=== PATIENT | female | born 1940 | race Caucasian/White ===

== ENCOUNTER 2020-11-07 08:15 | Day surgery (SDC) | payer MEDICARE, OTHER ==
[~2020-11-07 08:15] MED LIST: Lactated Ringers 1,000 ML IV SCH; Lidocaine 1%/Sod Bicarbonate in NS 8.4% 1 ML Syringe IDERM PRN; Morphine 8 MG, EPINEPHrine 0.3 MG, Cefuroxime 750 MG, Ketorolac 30 MG, Sodium Chloride ... PRN; Sodium Chloride 0.9% 10 ML Syringe FLUSH PRN
[2020-11-07] MEDS ORDERED: Propofol 200 MG/20 ML SDV ONE ×3 (08:19→10:26)
[2020-11-07] MEDS ORDERED: Ondansetron 4 MG/2 ML SDV ONE (08:19)
[2020-11-07] MEDS ORDERED: fentaNYL 100 MCG/2 ML SDV ONE ×2 (08:19→10:51)
[2020-11-07] MEDS ORDERED: ceFAZolin 1 GM Vial ONE (08:20)
[2020-11-07] MEDS ORDERED: Lidocaine 1% 4 ML ONE (08:20)
--- NOTE | 2020-11-07 08:46 | PCM.PREANE ---
Preanesthetic Assessment - Procedure Proposed Procedure: Right total Knee - Anesthesia/Transfusion/Family Hx Anesthesia History: Prior Anesthesia Without Reaction Family History of Anesthesia Reaction: No Transfusion History: No Prior Transfusion(s) - Review of Systems General: No Symptoms Pulmonary: No Symptoms Cardiovascular: Dyspnea on Exertion Gastrointestinal: No Symptoms Neurological: Gait Disturbance (with knee) Other: Reports: None - Physical Assessment NPO Status Date: 11/06/20 NPO Status Time: 00:00 Height: 1.63 m Weight: 73.1 kg ASA Class: 3 Mental Status: Alert & Oriented x3 Airway Class: Mallampati = 2 Dentition: Reports: Normal Dentition, [place](s) Thyro-Mental Finger Breadths: 3 Mouth Opening Finger Breadths: 2 ROM/Head Extension: Full Lungs: Clear to Auscultation, Normal Respiratory Effort Cardiovascular: Regular Rate, Regular Rhythm - Imaging/EKG Impressions: EKG NSR LBBB - Allergies Allergies/Adverse Reactions: Allergies Allergy/AdvReac Type Severity Reaction Status Date / Time Sulfa (Sulfonamide Allergy Nausea and Verified 11/06/20 12:36 Antibiotics) Vomiting - Anesthesia Plan Pre-Op Medication Ordered: Beta Kalpana Beta Kalpana: Other (Bystolic) Med Last Dose Date: 11/07/20 Med Last Dose Time: 07:00 - Acknowledgements Anesthesia Type Planned: Spinal Pt an Appropriate Candidate for the Planned Anesthesia: Yes Alternatives and Risks of Anesthesia Discussed w Pt/Guardian: Yes Pt/Guardian Understands and Agrees with Anesthesia Plan: Yes PreAnesthesia Questionnaire HEENT History: Reports: Cataract Cardiovascular History: Reports: High Cholesterol, Other (See Below) Other Cardiovascular History: BBB Gastrointestinal History: Reports: GERD Genitourinary History: Reports: Renal Disease Musculoskeletal History: Reports: Osteoarthritis Other Hematologic History: coagulation defect, hyponatremia Oncologic (Cancer) History: Reports: Malignant Melanoma - Past Surgical History HEENT Surgical History: Reports: Cataract Surgery GI Surgical History: Reports: Colonoscopy, EGD Female Surgical History: Reports: Breast Biopsy, Cervical Conization Musculoskeletal Surgical History: Reports: Joint Replacement - SUBSTANCE USE Tobacco Use Status *Q: Former Tobacco User Tobacco Use Within Last Twelve Months: No Second Hand Smoke Exposure: No Days Per Week of Alcohol Use: 1 Number of Drinks Per Day: 0 Total Drinks Per Week: 0 Recreational Drug Use History: No - HOME MEDS Home Medications: Home Meds Acetaminophen [Tylenol Extra Strength] 1 tab PO ASDIRECTED PRN 11/06/20 [History] Aspirin [Aspirin EC] 325 mg PO BID #30 tab 11/06/20 [Rx] Aspirin [Halfprin] 81 mg PO DAILY 11/06/20 [History] Chlorthalidone 1 tab PO DAILY 11/06/20 [History] Cholecalciferol (Vitamin D3) [Vitamin D3] 1 cap PO DAILY 11/06/20 [History] Cyanocobalamin (Vitamin B12) [Vitamin B12] 1 tab PO DAILY 11/06/20 [History] Docusate Sodium 1 tab PO DAILY 11/06/20 [History] Fish Oil/[place]-3 Fatty Acids [Fish Oil 1,000 MG] 2 cap PO DAILY 11/06/20 [History] Magnesium Oxide 400 mg PO DAILY 11/06/20 [History] NIFEdipine [Procardia XL] 30 mg PO ASDIRECTED 11/06/20 [History] Nebivolol HCl [Bystolic] 5 mg PO DAILY 11/06/20 [History] Omeprazole Magnesium [Prilosec Otc] 20 mg PO DAILY 11/06/20 [History] Rivaroxaban [Xarelto] 10 mg PO DAILY #14 tab 11/06/20 [Rx] Sennosides [Senna] 2 tab PO DAILY 11/06/20 [History] Simvastatin [Zocor] 10 mg PO DAILY 11/06/20 [History] diphenhydrAMINE HCL [Unisom] 50 mg PO ASDIRECTED PRN 11/06/20 [History] oxyCODONE 5 - 10 mg PO Q4H PRN #40 tab 11/06/20 [Rx] - CURRENT (IN HOUSE) MEDS Current Meds: Current Medications Morphine Sulfate 8 mg/Epinephrine HCl 0.3 mg/Cefuroxime Sodium 750 mg/Ketorolac Tromethamine 30 mg/Sodium Chloride 7.9 ml 0 mg .XX ASDIRECTED PRN PRN Reason: Pain Stop: 11/07/20 16:00 Lactated Ringer's (Ringers, Lactated) 1,000 mls @ 125 mls/hr IV ASDIRECTED OCTAVIANO Stop: 11/07/20 23:00 Lidocaine/Sodium Bicarbonate (Lidocaine 1%/Sod Bicarbonate In Ns 8.4% 1 Ml Syringe) 0.25 ml IDERM ONETIME PRN PRN Reason: Prior to IV Start Stop: 11/07/20 18:00 Sodium Chloride (Sodium Chloride 0.9% 10 Ml Syringe) 10 ml FLUSH ASDIRECTED PRN PRN Reason: Keep Vein Open Stop: 11/07/20 18:00 Discontinued Medications Cefazolin Sodium (Cefazolin 1 Gm Vial) Confirm Administered Dose 2 gm .ROUTE .STK-MED ONE Stop: 11/07/20 08:21 Morphine Sulfate 8 mg/Epinephrine HCl 0.3 mg/Cefuroxime Sodium 750 mg/Ketorolac Tromethamine 30 mg/Sodium Chloride 7.9 ml 0 mg .XX ASDIRECTED PRN PRN Reason: Pain Fentanyl (Fentanyl 100 Mcg/2 Ml Sdv) Confirm Administered Dose 100 mcg .ROUTE .STK-MED ONE Stop: 11/07/20 08:20 Lidocaine HCl (Xylocaine-Mpf 1%) Confirm Administered Dose 4 mls @ as directed .ROUTE .STK-MED ONE Stop: 11/07/20 08:21 Ondansetron HCl (Ondansetron 4 Mg/2 Ml Sdv) Confirm Administered Dose 4 mg .ROUTE .STK-MED ONE Stop: 11/07/20 08:20 Propofol (Propofol 200 Mg/20 Ml Sdv) Confirm Administered Dose 200 mg .ROUTE .STK-MED ONE Stop: 11/07/20 08:20 Tranexamic Acid (Tranexamic Acid 1,000 Mg/10 Ml Amp) Confirm Administered Dose 1,000 mg .ROUTE .STK-MED ONE Stop: 11/07/20 08:21 Vancomycin HCl (Vancomycin 1 Gm Sdv) Confirm Administered Dose 1 gm .ROUTE .STK- MED ONE Stop: 11/07/20 08:21
[2020-11-07] MEDS ORDERED: Lactated Ringers 1,000 ML ONE (10:19)
[2020-11-07] MEDS: Vancomycin 1 GM SDV ONE ×2 (10:24→10:44)
[2020-11-07] MEDS: Morphine 8 MG, EPINEPHrine 0.3 MG, Cefuroxime 750 MG, Ketorolac 30 MG, Sodium Chloride ... PRN ×10 (10:28→10:36)
[2020-11-07] MEDS ORDERED: Labetalol 100 MG/20 ML MDV ONE (10:37)
[2020-11-07] MEDS ORDERED: fentaNYL 100 MCG/2 ML SDV IVPUSH PRN (11:13)
--- NOTE | 2020-11-07 11:14 | PCM.POSTAN ---
POST ANESTHESIA ASSESSMENT - MENTAL STATUS Mental Status: Alert, Oriented - RESPIRATORY Respiratory Status: Respiratory Rate WNL, Airway Patent, O2 Saturation Stable - CARDIOVASCULAR CV Status: Pulse Rate WNL, Blood Pressure Stable - GASTROINTESTINAL GI Status: No Symptoms - PAIN Pain Score: 0 - POST OP HYDRATION Hydration Status: Adequate & Stable - OBSERVATIONS Free Text/Narrative:: no anesthesia complications noted
[2020-11-07] MEDS ORDERED: EPINEPHrine 1 MG/ML SDV ONE (11:17)
[2020-11-07] MEDS ORDERED: LORazepam 2 MG/ML SDV ONE (11:18)
[2020-11-07] MEDS ORDERED: Ropivacaine 0.5% 5 MG/ML 30 ML SDV ONE (11:18)
[2020-11-07] MEDS ORDERED: LORazepam 2 MG/ML SDV IVPUSH ONE (11:24)
--- NOTE | 2020-11-07 11:47 | PCM.SN.2 ---
- Free Text/Narrative Note: Right selective femoral nerve block at the adductor canal for post-procedure pain control under US guidance requested by Dr. Chowdary. Time Out: 1127 Start:1127 End: 1137 Chart reviewed. Consent signed. Questions answered. Appropriate monitors applied. Time out performed. Right mid-shaft femur identified with ultrasound, scanning medially of femur, the femoral artery in the adductor canal visualized, and the femoral nerve located laterally to the artery. The skin was prepped lateral to the ultrasound probe with chlorahexadine times two. The 21ga 4 insulated block needle was inserted under direct ultrasound guidance into the adductor canal. 25mL of 0.5% ropivacaine with 1:200,000 epinephrine was injected circumferentially around the nerve with intermittent negative aspiration noted. Patient tolerated the procedure well. Sterile technique noted along with sterile gloves, mask, and sterile probe cover. See picture on progress note and vital signs on nurses notes. Block completed in PACU. Dante Genao CRNA
--- NOTE | 2020-11-07 12:26 | CR ---
Right knee: AP and crosstable lateral views of the right knee were obtained. Comparison: Prior right knee CT exam of 10/26/20. Knee prosthesis is noted. Patellar prosthesis is seen. Soft tissue air is noted. Underlying osseous structures show no acute abnormality. Impression: 1. Satisfactory postop radiographic appearance of recently placed right knee prostheses. Diagnostic code #2
[2020-11-07] MEDS ORDERED: oxyCODONE 5 MG Tab PO PRN (14:00)
--- NOTE | 2020-11-07 16:51 | PCM.SN.2 ---
#1 Interpretation EKG Date: 11/07/20 Time: 11:43 Rhythm: NSR Rate (Beats/Min): 90 [place]: LAD-Left [place] Deviation P-Wave: Present QRS: LBBB ST-T: Normal QT: Normal
[2020-11-07] MEDS ORDERED: Ondansetron 4 MG/2 ML SDV IVPUSH PRN (19:00)
[2020-11-07] MEDS ORDERED: Non-Formulary Medication 1 Each (Acetaminophen 500 MG Tablet) PO PRN (19:02)
[2020-11-07] MEDS ORDERED: NIFEdipine 30 MG Tab.ER PO SCH (19:15)
[2020-11-07] MEDS ORDERED: Acetaminophen 325 MG Tab PO PRN (21:53)
[2020-11-07] MEDS ORDERED: NIFEdipine 30 MG Tab.ER PO ONE (22:00)
[2020-11-08] MEDS ORDERED: Pantoprazole 40 MG Tab.CR PO SCH (06:00)
--- NOTE | 2020-11-08 08:16 | PCM48HPAN ---
Post Anesthesia Note - EVALUATION WITHIN 48HRS OF ANESTHETIC Vital Signs in Normal Range: Yes Patient Participated in Evaluation: Yes Respiratory Function Stable: Yes Airway Patent: Yes Cardiovascular Function Stable: Yes Hydration Status Stable: Yes Pain Control Satisfactory: Yes Nausea and Vomiting Control Satisfactory: Yes Mental Status Recovered: Yes Vital Signs: Last Vital Signs Temp 37.1 C 11/08/20 07:25 Pulse 90 11/08/20 07:25 Resp 14 11/08/20 07:25 BP 129/49 L 11/08/20 07:25 Pulse Ox 97 11/08/20 07:25
[2020-11-08] MEDS ORDERED: Magnesium Oxide 400 MG Tab PO SCH (09:00)
[2020-11-08] MEDS ORDERED: Docusate Sodium 100 MG Cap PO SCH (09:00)
[2020-11-08] MEDS ORDERED: NEBIVOLOL HCL 5 MG PO SCH (09:00)
[2020-11-08] MEDS ORDERED: Sennosides 8.6 MG Tab PO SCH (09:00)
[2020-11-08] MEDS ORDERED: Aspirin 81 MG Tab.EC PO SCH (09:00)
[2020-11-08] MEDS ORDERED: Rivaroxaban 10 MG Tab PO SCH (09:00)
[2020-11-08] MEDS ORDERED: Chlorthalidone 25 MG Tab PO SCH (09:00)
[2020-11-08] MEDS ORDERED: Simvastatin 10 MG Tab PO SCH (09:00)
[2020-11-08] MEDS ORDERED: NIFEdipine 30 MG Tab.ER PO SCH (21:00)
[2020-11-09] MEDS ORDERED: NIFEdipine 30 MG Tab.ER PO SCH (21:00)
--- NOTE | 2020-11-22 08:31 | PCM.OPNOTE ---
- General Post-Op/Procedure Note Date of Surgery/Procedure: 11/07/20 Operative Procedure(s): right total knee arthroplasty with kristian ramón robotic assist Pre Op Diagnosis: right knee osteoarthrosis Post-Op Diagnosis: Same Anesthesia Technique: Local, MAC, Spinal Primary Surgeon: Luis Angel Chowdary Anesthesia Provider: Dante Genao [employer] Supervisor: Imelda Bryan [employer] Supervisor: Yani Ortega EBL in mLs: 5 Complications: None Condition: Good Free Text/Narrative:: 06/20 9mm 32x10
--- NOTE | 2020-11-22 08:56 | OR ---
DATE OF OPERATION: 11/07/2020 SURGEON: Luis Angel Chowdary MD OPERATION PERFORMED: Right total knee arthroplasty with [place] Thai robotic assist. PREOPERATIVE DIAGNOSIS: Right knee osteoarthrosis. POSTOPERATIVE DIAGNOSIS: Right knee osteoarthrosis. ANESTHESIA: Local MAC with spinal. ANESTHESIA PROVIDER: Jan Snyder. CLIENT ACCOUNT REPRESENTATIVE: Imelda Bryan PA-C; and Yani Ortega LPN. ESTIMATED BLOOD LOSS: 5 mL. COMPLICATIONS: None. CONDITION: Stable. IMPLANTS: 1. [place] size 3 cemented PS femur. 2. Mariia size 3 cemented Swiss tibial baseplate. 3. Mariia size 3 9 mm PS X3 polyethylene. 4. Mariia size 32 x 10 mm cemented asymmetric patella. DESCRIPTION OF PROCEDURE: The patient was identified in the preop holding area. Proper site was marked and identified by the surgeon. The patient was taken back to the operating theater where after adequate anesthesia, the patient's right lower extremity had a nonsterile tourniquet applied and it was sterilely prepped and draped in the usual sterile fashion. OR time-out was performed. The patient received 2 g IV Ancef . Leg mahmood was then applied to the right lower extremity. At this time, the right lower extremity was exsanguinated. Tourniquet was insufflated to 250 mmHg . Standard anterior incision was made. Medial parapatellar arthrotomy was created. Deep fibers of the MCL were raised as well as anterior fat pad was resected. Attention was turned to the patella. Patella measured 23 mm; it was resected to 13 mm for a 32 x 10 mm patella. Drill holes were then drilled. Attention was then turned to the femur. Two 4.0 pins were placed intra-incisionally for the [place] Thai robotic array and then 2 more were placed on the tibia 3 fingerbreadths below the tibial tubercle. The Mariia Thai robotic arrays were placed on both the femur and the tibia then at this time as well as checkpoints on the femur and tibia. Hip center rotation was then obtained. The medial and lateral malleoli were marked. At this time, 40 points were obtained off the femur and the tibia for the [place] Thai robotic plan. The patient's knee was brought to full extension. Varus and valgus stresses were applied and then into 90 degrees of flexion with a curved osteotome. Varus and valgus stresses were applied. At this time, [employer] robotic plan was done to 19 mm gaps in both flexion and extension. [place] MTPV robotic arm was then brought in. A straight saw blade was then used for the tibial cut, the anterior femoral cut, the anterior chamfer cut, and the posterior femoral cut. All bony fragments were removed. Saw blade was then switched out and the distal femoral cut as well as the posterior chamfer cut was completed. At this time, medial and lateral menisci were resected as well as any posterior osteophytes. A size 3 mm trial tibia was then placed, size 3 mm trial femur was placed, and a size 3 9 mm PS X3 polyethylene trial liner was placed. The patient's knee was brought to full extension and flexion. Varus and valgus stresses were applied, was found to be stable with no instability. No signs of liftoff or loosening were noted. At this time, box cut was completed on the femur. The pins were removed from the femur and the tibia as well as the arrays and the checkpoints. Cement was mixed on the back table. All cut surfaces were irrigated with pulse lavage irrigation with Ancef and then completely dried. Once the cement was ready, the Mariia size 3 mm cemented Swiss tibial base plate having been previously stamped and drilled, was then cemented in place on the tibia. The [place] size 3 mm cemented femur was cemented into place. The patient had a [place] size 3 9 mm PS X3 polyethylene insert placed. The patient's knee was brought to full extension. Excess cement was removed. A Mariia size 32 x 10 mm cemented asymmetric patella was then cemented into place. 1 L of pulse lavage irrigation with Ancef was irrigated through the knee along with 400 mL of IrriSept irrigation. Periarticular injection was completed. Topical tranexamic acid and vancomycin powder were applied. A #2 barbed suture was used for closure of the medial parapatellar arthrotomy in flexion. 2-0 Vicryl and Stratafix were used for subcutaneous closure. Prineo was used for cutaneous closure. The patient had a sterile soft dressing applied. The tibial holes were closed with nylon, and this was also covered with a sterile soft dressing. The patient had an JEMMA wrap applied and was sent to PACU in stable condition. The patient tolerated the procedure well. HAYLIE: 11/22/2020 08:32:57 MMODAL /[id number]
== END 2020-11-08 11:00 | disposition home or self-care (01) ==
LOC: JD.SDS 08:15 → JD.MS 08:16 → JD.SDS 11-08 11:00
PROVIDERS: ATTEND Orthopaedic Surgery
DX: M17.11 Unilateral primary osteoarthritis, right knee (principal); M23.51 Chronic instability of knee, right knee; I13.0 Hypertensive heart and chronic kidney disease with heart failure and stage 1 through stage 4 chronic kidney disease, or unspecified chronic kidney disease; N18.30 Chronic kidney disease, stage 3 unspecified; E78.5 Hyperlipidemia, unspecified; M25.761 Osteophyte, right knee; Z79.899 Other long term (current) drug therapy; G89.18 Other acute postprocedural pain
CPT/HCPCS: 27447; 73560; 93005; 97110; 97116; 97161; 97530; A9270; C1713; C1776; J0171; J0690; J0697; J1885; J2060; J2270; J2370; J2405; J2704; J2795; J3010; J3370; J3490; J7120; 01402; 64450; 76942; 99100